=== PATIENT | female | born 1955 | race Caucasian/White ===

== ENCOUNTER 2019-01-25 08:02 | Day surgery (SDC) | payer MEDICARE ==
[~2019-01-25] VITALS: Ht 165.1 cm; Wt 53.5 kg
[2019-01-25] VITALS (7 sets, daily range): BP systolic 119–145; BP diastolic 68–82
[2019-01-25] MEDS ORDERED: LR 1000ml 1,000 ML IVLG SCH (08:20)
--- NOTE | 2019-01-25 08:22 | Anethesia Preoperative Eval ---
Anesthesia Pre-op PMH/ROS General Date of Evaluation: January 25, 2019 Time of Evaluation: 08:21 Anesthesiologist: xiomy ASA Score: ASA 3 Mallampati Score Class I : Soft palate, uvula, fauces, pillars visible Class II: Soft palate, uvula, fauces visible Class III: Soft palate, base of uvula visible Class IV: Only hard plate visible Mallampati Classification: Class II Surgeon: francesca Diagnosis: abdominal pain, gerd Surgical Procedure: egd/colonoscopy Anesthesia History: none Social History: smoking - former smoker Allergies: Coded Allergies: No Known Allergies (Unverified , 01/25/19) Medications: see eMAR Patient NPO?: Yes Past Medical History Pulmonary: Reports: asthma, other - aspiration pneumonia Gastrointestinal/Genitourinary: Reports: GERD, other - esophageal surgery, colonic polyps, colon interposition Musculoskeletal/Integumentary: Reports: other - basal cell carcinoma, 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 Exam Physician Exam Last Vital Signs Date Time Temp Pulse Resp B/P (MAP) Pulse Ox O2 Delivery O2 Flow Rate FiO2 01/25/19 08:43 Room Air 01/25/19 08:27 97.3 87 18 145/68 100 Constitutional: NAD Neurologic: CN 2-12 intact Cardiovascular: RRR Respiratory: CTA Gastrointestinal: S/NT/ND Airway Exam Mallampati Score: Class II MO: limited Neck: flexible TMD: 2fb ROM: limited Teeth: missing Dentures: upper, lower Anesthesia Pre-op A/P Risk Assessment & Plan Assessment: asa3 Plan: mac Status Change Before Surgery: No Pre-Antibiotics Drug: Serenity Miranda MD January 25, 2019 08:22
--- NOTE | 2019-01-25 08:23 | Short Stay Surgery H&P ---
History of Present Illness History of Present Illness Chief Complaint Gerds and history of peptic ulcer/screening colon with history of colon polyp HPI Clary Blackwell Friend is a 63 year old female who was admitted on for Abdominal Pain, Gerd/screening colon Patient History Allergies: Coded Allergies: No Known Allergies (Unverified , 01/25/19) PAST MEDICAL HISTORY: (1) Peptic ulcer (2) Asthma (3) History of esophageal surgery Review of Systems Cardiovascular: Reports: no symptoms Respiratory: Reports: asthma Skeletal: Reports: no symptoms Gastrointestinal: Reports: gastro esophageal reflux disease Genitourinary: Reports: no symptoms Neurologic: Reports: no symptoms Endocrine: Reports: no symptoms Hematologic: Reports: no symptoms Physical Exam Skin: normal HENT: normal Heart: normal Lungs: normal Abdomen: normal Extremities: normal Genitourinary: normal Plan Plan of Care Uooer and lower GI endoscopy with possible biopsy Preop Interventions None Summary of Findings See the reports Attestation Are the patient's medical conditions optimized for surgery? Attestation Response: yes Stephanie Bravo MD January 25, 2019 08:23
--- NOTE | 2019-01-25 08:24 | Pre-Procedure Note/Attestation ---
Pre-Procedure Note/Attestation Complete Prior to Procedure Planned Procedure: left Procedure Narrative: Examination of the upper and lower GI tract via endoscopy Indications for Procedure Pre-Operative Diagnosis: R/O Peptic ulcer/colon polyps Attestation I attest that I discussed the nature of the procedure; its benefits; risks and complications; and alternatives (and the risks and benefits of such alternatives ), prior to the procedure, with the patient (or the patient's legal branch customer service representative). I attest that, if there was a reasonable possibility of needing a blood transfusion, the patient (or the patient's legal branch customer service representative) was given the [facility] standardized written summary, pursuant to the [place] Blood Safety Act ([place] Health and Safety Code # 1645, as amended). I attest that I re-evaluated the patient just prior to the surgery and that there has been no change in the patient's H&P, except as documented below: Stephanie Bravo MD January 25, 2019 08:24
[2019-01-25] MEDS ORDERED: fentaNYL 100 mcg/2 mL IV PRN (08:30)
[2019-01-25] MEDS ORDERED: Propofol 200mg/20ml IV ONE (08:30)
[2019-01-25] MEDS ORDERED: Atropine Inj 1mg/10ml Syr IV PRN (08:30)
[2019-01-25] MEDS ORDERED: DiphenhydrAMINE 50mg/ml Inj IVP PRN (08:30)
[2019-01-25] MEDS ORDERED: LR 1000ml ONE (08:30)
[2019-01-25] MEDS ORDERED: Lidocaine 1% MPF 10mg/ml 5ml ONE (08:30)
[2019-01-25] MEDS ORDERED: Midazolam 2mg/2ml Inj IVP PRN (08:30)
[2019-01-25] MEDS ORDERED: VITAMIN D35000 UNIT PO (08:50)
[2019-01-25] MEDS ORDERED: HEMP PO (08:50)
[2019-01-25] MEDS ORDERED: OMEPRAZOLE40 M1 ORAL (08:50)
[2019-01-25] MEDS ORDERED: FOLIC ACID0.4 MG ORAL (08:50)
[2019-01-25] MEDS ORDERED: MELATONIN3 MG ORAL (08:50)
[2019-01-25] MEDS ORDERED: SYMBICORT 16010.2 G1 IH (08:50)
[2019-01-25] MEDS ORDERED: VITAMIN B1 PO (08:50)
[2019-01-25] MEDS ORDERED: [UNRECOGNIZED DRUG - OTHER] PO (08:50)
[2019-01-25] MEDS ORDERED: PROBIOTIC1 EAC5 PO (08:50)
[2019-01-25] MEDS ORDERED: VITAMIN B122500 MCG PO (08:50)
[2019-01-25] MEDS ORDERED: MAGNESIUM250 M2 PO (08:50)
[2019-01-25] MEDS ORDERED: ASPIR 8181 MG ORAL (08:50)
[2019-01-25] MEDS ORDERED: MULTIVITAMINS1 EAC2 ORAL (08:50)
[2019-01-25] MEDS ORDERED: CLOZAPINE200 MG PO (08:50)
[2019-01-25] MEDS ORDERED: SINGULAIR10 MG ORAL (08:50)
[2019-01-25] MEDS ORDERED: ALPHA LIPOIC A200 MG PO (08:50)
--- NOTE | 2019-01-25 09:56 | Endoscopy Procedure Note ---
Endoscopy Procedure Note General Indication for Procedure: GERDs/history of colonic interpostion surgery/ history of colon polyp Procedures Performed: EGD - Normal upper GI endoscopy with evidence of colonic interposition. biopsy was taken from gastric area., colonoscopy - Extremely difficult procedure due to poor prep and significant redendancy of colon. Minimal internal hemorrhoid found, no polyps. Specimen: yes Pt Tolerated Procedure Well: Yes Anesthesia Anesthesiologist: Dr. Melgar Anesthesia: moderate sedation Inserted Devices Implant(s) used?: No Quality Quality of Bowel Preparation: Poor Did scope reach the cecum?: Yes Was there any complications?: No GI Core Measures 50 yrs or older w/o bx or poly: Yes 10yrs. F/U recommended: Yes 18 years or older w/prev. colo: Yes <3yrs. since last colonoscopy: No Med reason:<3 yrs.: System Reason:<3 yrs.: Last colonoscopy >= to 3yrs: Yes Stephanie Bravo MD January 25, 2019 09:56
--- NOTE | 2019-01-25 09:57 | Discharge Instructions ---
Discharge Instructions Discharge Instructions Follow up with: See the docotor in offivce after 2 weeks For Congestive Heart Failure Reminder Report to your physician any weight gain of 5 pounds or more in one week. Stephanie Bravo MD January 25, 2019 09:57
--- NOTE | 2019-01-25 10:23 | Immediate Post-Op Evaluation ---
Immediate Post-Op Evalulation Immediate Post-Op Evalulation Procedure: egd/colonoscopy/bx Date of Evaluation: January 25, 2019 Time of Evaluation: 10:14 IV Fluids: 400ml lr Blood Products: none Estimated Blood Loss: negligible Blood Pressure Systolic: 128 Blood Pressure Diastolic: 79 Pulse Rate: 83 Respiratory Rate: 18 O2 Sat by Pulse Oximetry: 98 Temperature (Fahrenheit): 97.2 Pain Score (1-10): 0 Nausea: No Vomiting: No Complications none Patient Status: awake, reacts, patent Hydration Status: adequate Drug: Serenity Miranda MD January 25, 2019 10:23
--- NOTE | 2019-01-25 10:24 | 48 Hour Post Anesthesia Eval ---
Post Anesthesia Evaluation Procedure: egd/colonoscopy/bx Date of Evaluation: January 25, 2019 Time of Evaluation: 10:16 Blood Pressure Systolic: 127 0: 82 Pulse Rate: 82 Respiratory Rate: 18 Temperature (Fahrenheit): 97.2 O2 Sat by Pulse Oximetry: 99 Airway: patent Nausea: No Vomiting: No Pain Intensity: 0 Hydration Status: adequate Cardiopulmonary Status: stable Mental Status/LOC: patient returned to baseline Post-Anesthesia Complications: none Follow-up care needed: N/A Serenity Melgar MD January 25, 2019 10:24
--- NOTE | 2019-01-25 17:15 | Procedure Note ---
DATE OF PROCEDURE: 01/25/2019 PROCEDURE: Total colonoscopy. PREOPERATIVE DIAGNOSES: 1. History of colon polyps. 2. Screening colonoscopy. POSTOPERATIVE DIAGNOSIS: Extremely difficult colonoscopic examination due to high redundancy of the colon and poor colonic preparation. However, there was no any evidence of polyps or tumors except a small internal hemorrhoids of no great significance. MEDICATIONS USED: Per Dr. Turpin. INSTRUMENT: GIF Olympus upper GI video endoscope. DESCRIPTION OF PROCEDURE: The patient after arriving endoscopy unit, was told about risks and benefits of the procedure which she accepted and signed informed consent. At this time, she was put on the left lateral decubitus position and after adequate IV sedation, the scope was gently passed through the anal area and a retroflexion maneuver which was applied here revealed evidence of very minimal internal hemorrhoids of non-friable. The rest of the rectum looked normal though there was evidence of formed stool in this area and all over the colon which made the examination quite significantly difficult and prolonged due to time being spent for irrigation and cleanup of the colon. The left colon was also quite redundant and it seems that the patient might possibly have the pelvic adhesions as well. At this point, significant amount of time was passed to go through this area and the patient had to be put on different positions including supine and finally the scope could reach to transverse colon and guided into the right side of the colon all the way down to the cecal area and these areas also remained to be normal and no evidence of polyps, tumors, inflammatory process, ulcers, strictures, etc. was found. Finally, within 7 minutes, the scope was gradually pulled out and reexamination of the colon did not reveal any other abnormalities. The patient tolerated the procedure well and left the endoscopy room in a good condition. Said Fletcher Bravo DR: Mackenzie JOB#: [id number] CC:
--- NOTE | 2019-01-25 17:15 | Procedure Note ---
DATE OF PROCEDURE: 01/25/2019 SURGEON: Stephanie Bravo M.D. PROCEDURE: Esophagogastroduodenoscopy with biopsy. PREOPERATIVE DIAGNOSES: 1. History of the colonic interposition. 2. Gastroesophageal reflux. 3. Abdominal pain. POSTOPERATIVE DIAGNOSES: Completely normal upper GI endoscopy, status post colonic interposition biopsy was taken from gastric body. MEDICATION USED: Per Dr. Turpin, anesthesiologist. INSTRUMENT: GIF Olympus upper GI video endoscope. DESCRIPTION OF PROCEDURE: The patient after arriving at the endoscopy unit, was told about risks and benefits of the procedure which she accepted and signed informed consent. She was then put on the left lateral decubitus position. After adequate IV sedation, the scope was gently passed through the cricopharyngeal area, was lodged into the upper esophageal part and gradually advanced towards gastroesophageal junction. This area showed evidence of colonic structure consistent with prior history of colonic interposition due to the past injury of the esophagus. However, there was no pathology, no ulceration, and no bleeding, etc. The scope was then guided into the gastric area, which revealed no any significant abnormalities though the construction and anatomy of the stomach had also been changed. One random biopsy from this area was obtained and the scope was passed as much as it could be advanced and no other pathology found. Finally, the scope was pulled out and the procedure was terminated. The patient tolerated the procedure well. Stephanie Bravo M.D. DR: /JOSE C JOB#: [id number] CC:
== END 2019-01-25 11:00 | disposition home or self-care (01) ==
LOC: GAS 08:02
DX: K63.5 Polyp of colon (principal); K21.9 Gastro-esophageal reflux disease without esophagitis; Z86.010 Personal history of colon polyps; K64.8 Other hemorrhoids; R10.9 Unspecified abdominal pain; Z87.11 Personal history of peptic ulcer disease; Z87.891 Personal history of nicotine dependence; Z85.9 Personal history of malignant neoplasm, unspecified
CPT/HCPCS: 43239; 45378; J2704; 94003; 94150